=== PATIENT | male | born 1990 | race Caucasian/White ===

== ENCOUNTER 2017-05-29 00:09 | Emergency (ER) | payer OTHER, SELFPAY ==
[2017-05-29 00:11] VITALS: BP 153/86; PULSE 92; RESP 17; TEMP 36.7; O2SAT 98; BMI 20.3
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
--- NOTE | 2017-05-29 01:57 | ED.DEP ---
ED Disposition - Plan for ED Patient: Chief Complaint: Upper Extremity Injury Instructions: ED Contusion Hand Referrals: Bruce Hurley MD [STAFF PHYSICIAN] -
--- NOTE | 2017-05-29 04:06 | ED.RN ---
REFER TO DOWNTIME CHARTING FOR DISPOSITION INFORMATION.
== END 2017-05-29 02:15 | disposition home or self-care (01) ==
PROVIDERS: Emergency Provider Emergency Medicine
DX: S60.221A Contusion of right hand, initial encounter (principal); R20.0 Anesthesia of skin; W22.8XXA Striking against or struck by other objects, initial encounter; Y93.9 Activity, unspecified; Y92.9 Unspecified place or not applicable; F17.200 Nicotine dependence, unspecified, uncomplicated
CPT/HCPCS: 73130; 99281

== ENCOUNTER → 2017-06-04 09:37 | Outpatient (CLI) | payer OTHER, SELFPAY ==
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
== END ==
PROVIDERS: Family Provider Family Medicine; PCP Family Medicine; Visit Provider Family Medicine
DX: M89.9 Disorder of bone, unspecified (principal)
CPT/HCPCS: 73130

== ENCOUNTER 2018-07-21 15:33 | Emergency (ER) | payer SELFPAY ==
[2018-07-21 15:34] VITALS: BP 147/77; PULSE 119; RESP 18; TEMP 37; O2SAT 99; BMI 16.2
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
== END 2018-07-21 17:23 | disposition home or self-care (01) ==
PROVIDERS: Emergency Provider Emergency Medicine
DX: S81.011A Laceration without foreign body, right knee, initial encounter (principal); S80.01XA Contusion of right knee, initial encounter; V19.9XXA Pedal cyclist (driver) (passenger) injured in unspecified traffic accident, initial encounter; Y93.9 Activity, unspecified; Y92.9 Unspecified place or not applicable; Z72.0 Tobacco use
CPT/HCPCS: 12002; 73564; 99284

== ENCOUNTER 2018-07-31 14:01 | Emergency (ER) | payer SELFPAY ==
[2018-07-31 14:02] VITALS: BP 157/90; PULSE 111; RESP 16; TEMP 36.6; O2SAT 98; BMI 22.8
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
[2018-07-31] MEDS: Cephalexin 250 MG Capsule 500 MG PO (14:48)
[2018-07-31] MEDS: Smz/Tmp Ds Tablet 1 TABLET PO (14:48)
== END 2018-07-31 15:05 | disposition home or self-care (01) ==
LOC: ED 14:40
PROVIDERS: Emergency Provider Emergency Medicine
DX: T81.41XA Infection following a procedure, superficial incisional surgical site, initial encounter (principal); Z48.02 Encounter for removal of sutures; F90.9 Attention-deficit hyperactivity disorder, unspecified type; Z72.0 Tobacco use
CPT/HCPCS: 99283; A4216

== ENCOUNTER 2020-06-12 18:01 | Emergency (ER) | payer MEDICAID, SELFPAY ==
[2020-06-12 18:03] VITALS: BP 134/112; PULSE 120; RESP 17; TEMP 37.3; O2SAT 97; BMI 22.5
--- NOTE | 2020-06-12 18:20 | ED.DCSUM_ITS ---
History of Present Illness Chief Complaint: Abd Pain Informant: Patient Narrative: 9-year-old male presenting with diffuse cramping abdominal pain as well as nausea/vomiting. He has been seen multiple times for this at [place] emergency room. He states he was here twice this week. Initially he was told he was dehydrated and hypokalemic. When he followed up again his lab work was normal. Patient states he had a negative CT scan. He followed up with his PCP on an outpatient basis who told him he probably has acid reflux. He is currently awaiting a phone call from a GI doctor to set up an appointment. Patient states that he is able to hold down some fluids and 7-Up. He states he has been eating Jell-O and bland foods as not to irritate his stomach. Patient states he does not smoke marijuana. He denies other significant medical problems. Past Medical History - Allergies and Home Meds Allergies/Adverse Reactions: Allergies No Known Allergies Allergy (Verified 06/12/20 18:04) Primary Care Physician: Topher Velásquez MD [Primary Care Provider] - Prior records reviewed: Yes Past Medical History: - - GERD Smoking Status: Unknown if ever smoked Review of Systems General: Denies: Chills, Fever, Sweats Eyes: Denies: Visual changes - bilaterally, Diplopia ENT: Denies: Rhinorrhea, Sore throat Cardiovascular: Denies: Chest pain, Palpitations Respiratory: Denies: Dyspnea, Cough, Dyspnea on exertion Gastrointestinal: Reports: Abdominal pain, Nausea, Vomiting. Denies: Diarrhea, Constipation Genitourinary: Denies: Dysuria, Hematuria, Frequency Musculoskeletal: Denies: Back pain, Extremity Pain Skin: Denies: Rash, Wounds Neurological: Denies: Headache, Weakness, Numbness Psych: Denies: Depression, Anxiety, Suicidal thoughts, Suicidal ideations, -, - Endocrine: Denies: Polyuria, Polydipsia, Heat intolerance, Cold intolerance, -, - Physical Exam Vital Signs/Narrative: Vital Signs Temp Pulse Resp BP Pulse Ox 06/12/20 18:03 99.2 F H 120 H 17 134/112 H 97 Inital Vital Signs reviewed: Yes General: Well nourished, No Acute Distress Head: Normocephalic, Atraumatic Eyes: Perrl, EOMI ENT: Moist mucous membranes, Sinus tenderness Cardiovascular: Regular rate, Regular rhythm Respiratory: No distress, CTA bilaterally Abdomen: Soft, Nondistended, Normal bowel sounds, Tender - Mild epigastric tenderness. Abdomen is nonperitoneal. Extremities: Nontender, No edema Skin: Normal color, No rash Neurological: Alert, Oriented x3, Cranial nerves II-XII grossly intact Psychological: Normal affect, Normal Mood Diagnostic/Tx/Re-eval Laboratory Data 06/12/20 06/12/20 19:00 19:00 WBC 6.0 RBC 5.39 Hgb 16.0 Hct 46.3 MCV 85.9 MCH 29.7 MCHC 34.6 RDW Std Deviation 38.3 RDW Coeff of Miguel 12.5 Plt Count 229 MPV 10.7 Immature Gran % (Auto) 0.200 Neut % (Auto) 69.3 Lymph % (Auto) 22.9 Stanton % (Auto) 6.8 Eos % (Auto) 0.5 Baso % (Auto) 0.3 Absolute Neuts (auto) 4.2 Absolute Lymphs (auto) 1.37 Nucleated RBC % 0 Sodium 139 Potassium 3.5 Chloride 106 Carbon Dioxide 28.0 Anion Gap 5 BUN 6 L Creatinine 0.92 Estim Creat Clear Calc 128.46 Est GFR (MDRD) Af Amer 127 Est GFR (MDRD) Non-Af 105 BUN/Creatinine Ratio 6.6 L Glucose 94 Calcium 9.6 Total Bilirubin 0.40 AST 11 L ALT 23 Alkaline Phosphatase 71 Total Protein 8.2 Albumin 4.4 Globulin 3.8 Albumin/Globulin Ratio 1.2 Lipase 113 - Medical Decision Making Patient seen and evaluated for GERD-like symptoms. Patient has had this problem. He has appointment coming up for a GI consult given his continued nausea/vomiting and acid reflux. Patient has had few work-ups in [place]. He was placed on Bentyl and Zofran. His primary doctor put him on Prilosec 40 mg p.o. daily. Patient states he ate barbecue chicken last night before he started feeling sick again. He had a couple of episodes today. Patient's blood work today is normal. I believe his symptoms are due to acid reflux. Patient was given IV Pepcid, Zofran, GI cocktail in the ED. He had some improvement of his symptoms but still has some mild pain. I do not believe any to get a CT of his abdomen pelvis as he recently had one a few days ago. This was read as normal. Given his normal blood work I will hold off on this for now. Patient was couns eled discontinue the Bentyl. He was also counseled not to drink carbonated beverages. He is counseled to drink small amounts of fluids and food at a time. He will be given a prescription for Zofran and Pepcid twice daily for the short-term. He is to follow-up with his GI doctor. He is given return precautions. Patient stable discharge. Impression: 1. Abdominal pain 2. GERD ED Disposition - Plan for ED Patient: Disposition: Home or Assisted Living Instructions: Lifestyle Changes for Controlling GERD, Gastroesophageal Reflux Disease (GERD) Referrals: Topher Velásquez MD [Primary Care Provider] -
[2020-06-12 19:08] LABS: Absolute Lymphocyte Count 1.37 X10^3/uL (0.83-4.51); Absolute Neutrophil Count 4.2 X10^3/uL (2.0-7.7); Basophil# 0.02 X10^3/uL; Basophil% 0.3 % (0-1); Eosinophil# 0.03 X10^3/uL; Eosinophils% 0.5 % (0-5); Hematocrit 46.3 % (40-54); Lymphocyte # 1.37 X10^3/ul (4.0); Lymphocyte % 22.9 % (19-41); Mean Corp Hgb Conc 34.6 g/dL (32-36); Mean Corpuscular Hgb 29.7 pg (27.0-32.0); Mean Corpuscular Volume 85.9 fL (80-94); Mean Platelet Vol. 10.7 fl (6.2-12.0); Monocyte# 0.41 X10^3/uL; Monocyte% 6.8 % (0-10); NRBC Flagged by Analyzer 0 % (0-5); Neutrophil # 4.15 X10^3/uL (2.7-7.7); Neutrophil % 69.3 % (47-70); Platelet Count 229 K/mm3 (150-450); RBC Distribution Width CV 12.5 % (11.6-14.6); RBC Distribution Width SD 38.3 fl (35.1-43.9); Red Blood Count 5.39 M/mm3 (4.6-6.2)
[2020-06-12] MEDS: proMETHazine 25 MG/ML Syringe 12.5 MG IM (19:09)
[2020-06-12] MEDS: 0.9% Normal Saline 1,000 ML 1000 ML IV (19:09)
[2020-06-12] MEDS: Mag Hydrox/Al Hydrox/Simeth 30 ML UDC PO (19:10)
[2020-06-12] MEDS: Famotidine 200 MG/20 ML MDV 20 MG in 0.9% Normal Saline (Pres. free 8 ML 300 MG IV (19:10)
[2020-06-12 19:25] LABS: ALB/GLOB Ratio 1.2 RATIO (0.9-2.4); AST(SGOT) 11 U/L (15-37); Alanine Aminotransfer ALT/SGPT 23 U/L (16-61); Albumin, Serum 4.4 g/dL (3.2-5.0); Alkaline Phosphatase 71 U/L (45-117); Anion Gap 5 (5-15); BUN 6 mg/dL (7-18); BUN/Creat Ratio 6.6 RATIO (10-20); Calcium,Total 9.6 mg/dL (8.5-10.1); Chloride 106 mmol/L (98-107); Creatinine, Serum 0.92 mg/dL (0.70-1.30); EST Glomerular Filtration Rate 105 mL/min (>60); Est Glom Filt Rate - Afr Amer 127 mL/min (>60); Estimated Creatinine Clearance 128.46 ml/min; Globulin 3.8 g/dL (2.2-4.2); Glucose 94 mg/dL (74-106); Lipase 113 U/L (73-393); Potassium 3.5 mmol/L (3.5-5.1); Protein, Total 8.2 g/dL (6.4-8.2); Sodium Level 139 mmol/L (136-145)
== END 2020-06-12 19:51 | disposition home or self-care (01) ==
PROVIDERS: Emergency Provider Student in an Organized Health Care Education/Training Program; PCP Family Medicine
DX: R10.84 Generalized abdominal pain (principal); R11.2 Nausea with vomiting, unspecified; K21.9 Gastro-esophageal reflux disease without esophagitis
CPT/HCPCS: 80053; 83690; 85025; 96361; 96372; 96374; 99283; J7030; J3490